=== PATIENT | male | born 1970 | race Caucasian/White ===

== ENCOUNTER 2017-01-08 20:42 | Inpatient (IN) | payer SELFPAY ==
[~2017-01-08] VITALS: Ht 172.7 cm; Wt 96.2 kg
--- NOTE | ~2017-01-08 | CATH ---
Cardiac Diagnostic + PCI Report Demographics Patient Name RADHA LAMBERT Gender Male Date of 1970 Age 46 year(s) Patient Number [id number] Date of Study 01/08/2017 Visit Number [id number] Room Number G6[address] [place] [id number] Ht 172.72 cm Wt 97.52 kg Referring Pro Damian Primary Physician Physician Performing Efstratiou Secondary Physician Physician Alonso Bar MD Diagnostic Efstratiou Assisting Physician Physician Alonso Bar MD Interventional Efstratiou Physician Photograph Developer Physician Alonso Bar MD Findings and Conclusions Diagnostic Findings and Conclusion Moderate disease in left coronary. Subtotal stenosis in mid dominant RCA with filling defect and ZOYA 1-2 flow Diagnostic Recommendations PCI to RCA Interventional Findings and Conclusion Successful KADI to mid RCA Interventional Recommendations ASA + Brilinta Procedure Description The patient was brought to the diagnostic cardiac catheterization-EP laboratory by emergency personal. Physician deemed procedure as EMERGENT. The planned puncture-incision site(s) were shaved and prepped with ChloraPrep and draped in the usual sterile manner. Conscious sedation, supplemental oxygen, and pain control medications were delivered by a registered nurse under physician guidance. Surface ECG rhythm, blood pressure measurement, and pulse oximetry were monitored throughout the procedure. Arterial access. The access site was infiltrated with lidocaine. The vessel was entered with the Seldinger technique. A sheath was advanced into the vessel and used for catheter placement. Selective left coronary angiography. A catheter was advanced into the left coronary vessel ostium under Fluoroscopic guidance. Contrast was injected by hand. Images were obtained in multiple projections. Selective right coronary angiography. A catheter was advanced into the right coronary vessel ostium under fluoroscopic guidance. Contrast was injected by hand. Images were obtained in multiple projections. Thrombectomy. A guide catheter was placed in the vessel ostium. An aspiration catheter was advanced over the wire and thrombectomy was performed. Angioplasty and Stent Placement: A guiding catheter was used to intubate the vessel. A 0.14 wire was then used to cross the lesion. A balloon catheter was placed across the lesion and inflated. The balloon catheter was then removed. A Drug Eluting Stent was placed and inflated. Post placement angiograms were performed. Arterial artery hemostasis was achieved. The patient was transferred to a regular nursing floor via cart accompanied by a nurse. The patient left the laboratory in stable condition. Diagnostic Cath Status: Emergency Interventional Cath Status: Emergency Procedure Procedure Type Diagnostic procedure:Angiography:, Coronary Angios PCI procedure:Drug Eluting Coronary Stent:, RCA, PTCA:, RCA Indications: ST changes and Chest pain. The procedure was explained in detail to the patient. Risks, complications and alternative treatments were reviewed. Written consent was obtained. Medications Reviewed with Patient prior to Procedure. Angiographic Findings Dominance: Right Cardiac Arteries and Lesion Findings LMCA: Normal (0% Stenosis). LAD: Abnormal.The 1st Diag appears abnormal. Lesion on Mid LAD: 30% stenosis . Lesion on Dist LAD: 20% stenosis . LCx: Abnormal. Lesion on Prox CX: 20% stenosis . RCA: Abnormal. Lesion on Mid RCA: 99% stenosis 24 mm length reduced to 10%. Pre procedure ZOYA II flow was noted. Post Procedure ZOYA III flow was present. The guidewire cross was successful.The lesion was diagnosed as a moderate risk lesion.Culprit lesion. Comments:Focal Defect Devices used - Whisper Wire .014 x 190. Number of passes: 1. - UnFlete.comto LP Aspiration Catheter. Number of passes: 1. - Emerge Balloon 2.5 x 15. 1 inflation(s) to a max pressure of: 14 jena. - Promus Premier 3.5 x 24 Stent. 1 inflation(s) to a max pressure of: 20 jena. - NC Emerge Balloon 4.0 x 12. 3 inflation(s) to a max pressure of: 18 jena. Coronary Tree Procedure Data Procedure Date Date: 01/08/2017Start: 09:35 PMEnd: 10:20 PM Entry Locations - Retrograde Percutaneous access was performed through the Right Radial artery (Primary location). A 6 Fr sheath was inserted. Hemostasis was successfully obtained using an R band. Closure Comments: Reji placement r-band 13 ml air. Procedure Medications Order and Administration + + + + + !Time !Medication !Dosage !Route ! + + + + + !01/08/2017 09:37 PM!Radial Nitroglycerin !200 mcg !I.A. ! + + + + + !01/08/2017 09:38 PM!Radial Heparin (ACC_3) !5000 units!I.A. ! + + + + + !01/08/2017 09:38 PM!Fentanyl !25 mcg !I.V. ! + + + + + !01/08/2017 09:39 PM!0.9% NaCl !150 ml/hr !I.V. drip ! + + + + + !01/08/2017 09:40 PM!Zofran !4 mg !I.V. ! + + + + + !01/08/2017 09:49 PM!Heparin (ACC_3) !6000 units!I.V. bolus ! + + + + + !01/08/2017 09:52 PM!Aggrastat (Tirofiban) !2500 mcg !I.C. ! + + + + + !01/08/2017 09:56 PM!0.9% NaCl !300 ml !I.V. bolus ! + + + + 01/08/2017 09:58 PM!Fentanyl !25 mcg !I.V. ! + + + + + !01/08/2017 10:08 PM!Brilinta (Ticagrelor) (ACC_20)!180 mg !P.O. ! + + + + + Devices Used - A6 Fr. BS JL 3.5 Diag. Catheterwas used for:Left coronary angiography. - A6 Fr. HS Guide Catheterwas used for:RCA Intervention. - A6 Fr. BS JR 4 Diag. Catheterwas used for:Was not used. Contrast Material - Isovue [id number] ml Fluoroscopy Time: Diagnostic: 8:42 minutes. Total: 8:42 minutes. Fluoroscopy Dose: Diagnostic: 1070 mGy. Total: 1070 mGy. Estimated Blood Loss: 50 ml. Additional [facility] PCI Information PCI Indication:Rescue PCI for STEMI (after failed full-dose lytics). Medical History Performed Procedures and Imaging Results - No [facility] stress or imaging studies were performed. Allergies - No known allergies. Risk Factors The patient risk factors include:last creatinine: 1.6 mg/dl and creatinine clearance: 79.58 ml/min. Admission Data Admission Date: 01/08/2017 Admission Time: 08:42 PM Admit Source: Transfer acute care facility Insurance Payors: Private health insurance. Clinical Evaluation Leading to Procedure Diagnosed on 01/08/2017 09:02 PM. - The patient's CAD presentation was assessed as: STEMI.The symptom onset was first noted on 01/08/2017 07:00 PM - The patient recevied thrombolytic therapy as an urgent treatment for STEMI on 01/08/2017 08:20 PM. - The patient's anginal syndrome during the past two weeks was assessed as: Class IV according to the [place] Cardiovascular Society Classification System (CCS). Snapshots Hemodynamics Condition: Rest O2 Consumption: Estimated: 243.87Heart Rate: 57 bpm Pressures (mmHg) +-----+ + !Site !Pressure ! +-----+ + !AO !112/76 (94) ! +-----+ + !AO !133/83 (106) ! +-----+ + !AO !117/74 (94) ! +-----+ + Shunts Oxygen Values O2 Consumption 243.87 Signatures dtt: Saurabh Monte dtd: 01/08/17 2135 Physician Self Edit
--- NOTE | ~2017-01-08 | HP ---
PATIENT'S NAME: PETRA GARCIA [facility] AGE: 46 Y [address] ROOM: [place] [address] LOCATION: GPCU ADMIT DATE: 01/08/2017 History & Physical DISCHARGE DATE: FAMILY PHYSICIAN: Lui Evans PA-C ATTENDING PHYSICIAN: Venancio Lobato DATE OF SERVICE: ADMISSION DIAGNOSIS: Acute myocardial infarction. HISTORY OF PRESENT ILLNESS: The patient is a 46-year-old male with previous medical history positive only for gout, but also does not see a doctor at regular intervals. He had sudden onset of substernal chest pain while working with a nilda. The patient had his drive him to the emergency room in [place] where he was diagnosed with an acute inferolateral myocardial infarction. Subsequently I was called since the patient had presented within first hour, we thrombolysed him with TNK and have him flown directly to the catheterization laboratory. REVIEW OF SYSTEMS: Negative. PAST SURGICAL HISTORY: None. OUTPATIENT MEDICATIONS: Allopurinol 100 mg takes 5 tablets a day. FAMILY HISTORY: His mother at 72 from a stroke. His father is alive at 82, in his 60s he had a quintuple bypass. The patient has one brother and three sisters and all healthy. SOCIAL HISTORY: The patient is and has 18-year-old twin daughters. He is a sahu and a rancher. Never smoked. No significant alcohol use. Denies illegal drug use. PHYSICAL EXAMINATION: GENERAL APPEARANCE: He is a middle-aged man, by the time he arrived to the catheterization laboratory, he still had 4/10 chest pain. He was alert and oriented. VITAL SIGNS: Blood pressure 170/100, heart rate is 55. HEAD: Normocephalic and atraumatic. PATIENT'S NAME: PETRA GARCIA [facility] AGE: 46 Y [address] ROOM: [place] [address] LOCATION: GPCU ADMIT DATE: 01/08/2017 History & Physical DISCHARGE DATE: FAMILY PHYSICIAN: Lui Evans PA-C ATTENDING PHYSICIAN: Venancio Lobato NECK: Supple. No jugular venous distention. No carotid bruits. HEART: Regular with a 4th heart sound. No significant murmur. LUNGS: Clear. ABDOMEN: Soft, nontender. EXTREMITIES: Lower extremities; no peripheral edema. Normal peripheral pulses. LABORATORY DATA AND IMAGING STUDIES: Electrocardiogram showed persistent ST elevations in the inferolateral leads with reciprocal changes. Laboratories drawn in [place] showed his initial troponin was less than measured scale. The CK-MB was 3.4. His creatinine was 1.58, glucose 164. ASSESSMENT AND PLAN: Acute inferolateral myocardial infarction, failed intravenous thrombolysis. The patient will have emergent coronary angiography and percutaneous intervention according to his anatomy. The risks, benefits, and alternatives have been discussed and he is willing to proceed. Thank you for allowing me to participate in the care of your patient. VENANCIO LOBATO MD PE/cristóbal /[id number] D: T: 621 HISTORY & PHYSICAL
--- NOTE | ~2017-01-08 | ECHO ---
Transthoracic Echocardiography Report (TTE) Demographics Patient Name PETRA GARCIA Date of Study 01/09/2017 Patient Number [id number] Visit Number [id number] Date of 1970 Room Number G6331 Gender Male Number Age 46 year(s) Referring Mell Gupta Molding Room Supervisor Brandy Elkins RDCS, Physician A RVT, RDMS, SKILLS AUDITOR Physician Interpreting Efstratiou Festusotis Binder Lockstitch Physician A MD Supervising Ordering Wilfredotraofelia Martinezs MD/MLP Physician A Nurse Stress Hyperbaric Tech Conclusions Summary The estimated left ventricular ejection fraction is 40-45%. There is akinesis of the basilar portion of the inferior wall. The mid, distal inferior wall and inferolateral vasquez are hypokinetic. Mild to moderately depressed systolic function. Moderate concentric left ventricular hypertrophy. Left atrial enlargement. Aneurysmal interatrial septum without obvious PFO. There is mild pulmonary hypertension. The pulmonary pressure (RVSP) is 41 mmHg. Trivial mitral, aortic and pulmonic regurgitation with mild age related valvular changes. Possible left sided pleural effusion. Procedure Type of Study TTE procedure:2D Echocardiogram, M-Mode, Doppler , Color Doppler. Procedure Date Date: 01/09/2017 Start: 08:03 AM Study Location: Inpatient Portable Technical Quality: Good visualization Indications:Acute myocardioal infarction of inferoposterior wall. Additional Indications:Post Stemi Appropriate Use Criteria: 9 Patient Status: Routine Rhythm: NSR HR: 57 bpm BP: 171/107 mmHg Allergies - No known allergies. M-Mode/2D Measurements LV Diastolic Dimension: 5.05 cm LV Systolic Dimension: 4.11 cm LV Septum Diastolic: 1.43 cm LV PW Diastolic: 1.43 cm AO Root Dimension: 3 cm Cardiac Output: 4.46 l/min AV Cusp Separation: 2.3 cm RV Diastolic Dimension: 2.76 cm LA volume: 82 ml IVC Inspiration: 1.1 cm LVOT: 2.2 cm RV Base: 3.6 cm LVOT VTI: 20.6 cm RV Mid: 3.4 cm LV Stroke volume: 78.27 ml TAPSE: 2.4 cm TDI-S': 11 cm/s Doppler Measurements AV Peak Velocity: 1.25 m/s MV Peak E-Wave: 0.66 m/s AV Peak Gradient: 6.25 mmHg MV Peak A-Wave: 0.81 m/s AV Mean Gradient: 4 mmHg MV E/A Ratio: 0.82 LVOT Peak Velocity: 0.99 m/s MV P1/2t: 100 msec TR Gradient:32.49 mmHg PV Peak Velocity: 0.96 m/s Estimated RAP:8 mmHg PV Peak Gradient: 3.66 mmHg Estimated RVSP: 40 mmHg Estimated PASP: 40.49 mmHg E' Septal Velocity: 0.06 m/s A' Septal Velocity: 0.1 m/s E' Lateral Velocity: 0.08 m/s A' Lateral Velocity: 0.08 m/s Findings Left Ventricle The left ventricle is normal in size . Moderate concentric left ventricular hypertrophy. Diastolic assessment reveals Grade I diastolic dysfunction. Mildly reduced systolic function with wall motion abnormalities. Right Ventricle Normal right ventricle structure and function. Left Atrium The left atrium is mildly dilated by LA volume index measurement. Right Atrium Normal right atrial size. IVC measures 2.3 cm with inspiratory collapse greater than 50 % Mitral Valve Mild calcification of the mitral valve. Trivial mitral regurgitation by color Doppler. Mild mitral annular calcification. Aortic Valve The aortic valve is mildly sclerotic. There is trivial aortic regurgitation by color Doppler. Tricuspid Valve Normal tricuspid valve structure and function. Trivial tricuspid regurgitation by color Doppler. There is mild pulmonary hypertension. The pulmonary pressure (RVSP) is 41 mmHg. Pulmonic Valve Trivial pulmonic valve regurgitation by color Doppler. Normal pulmonic valve structure and function. Pericardial Effusion No evidence of pericardial effusion. Miscellaneous Visualized portions of the aortic root and ascending aorta appear normal in size. Pleural Effusion Possible left sided pleural effusion. Contractility Score LV regional wall motion:(0-Non visualized 1-Normal 2-Hypokinesis 3-Akinesis 4-Dyskinesis 5-Aneurysm) Signature dtt: Saurabh Monte dtd: 01/09/17 0803 Physician Self Edit
[2017-01-08] MEDS ORDERED: ALLOPURINOL100 MG PO (22:42)
[2017-01-09 05:23] LABS: ALBUMIN 3.8 gm/dL (3.5-5.0); ANION GAP 13.9 (10.0-19.0); CALCIUM 8.1 mg/dL (8.5-10.5); CREATININE 1.2 mg/dL (0.6-1.3); POTASSIUM 3.9 mMol/L (3.7-5.1); TOTAL BILIRUBIN 1.4 mg/dL (0.0-1.5); TOTAL PROTEIN 6.9 g/dL (6.0-8.4)
[2017-01-09] MEDS ORDERED: ZYLOPRIM300 MG PO (07:41)
[2017-01-10] MEDS ORDERED: NORVASC2.5 MG PO (13:27)
[2017-01-10] MEDS ORDERED: ASPIRIN (CHILDR81 MG PO (13:32)
[2017-01-10] MEDS ORDERED: LIPITOR80 MG PO (13:33)
[2017-01-10] MEDS ORDERED: INSPRA25 MG PO (13:34)
[2017-01-10] MEDS ORDERED: COREG 3.1253.125 MG PO (13:34)
[2017-01-10] MEDS ORDERED: PRINIVIL (ZESTRI5 MG PO (13:36)
[2017-01-10] MEDS ORDERED: BRILINTA90 MG PO (13:37)
[2017-01-10] MEDS ORDERED: NITROSTAT0.4 MG SL (13:38)
== END 2017-01-10 14:50 | disposition disaster alternative care site (69) | DRG 247 ==
LOC: GPCU 20:42
PROVIDERS: ADMIT Internal Medicine Cardiovascular Disease
PROC: B216YZZ Fluoroscopy of Right and Left Heart using Other Contrast (ICD-10-PCS; principal; 2017-01-08)
PROC: 02C03ZZ Extirpation of Matter from Coronary Artery, One Artery, Percutaneous Approach (ICD-10-PCS; principal; 2017-01-08)
PROC: 027034Z Dilation of Coronary Artery, One Artery with Drug-eluting Intraluminal Device, Percutaneous Approach (ICD-10-PCS; principal; 2017-01-08)
DX: I21.19 ST elevation (STEMI) myocardial infarction involving other coronary artery of inferior wall (principal); I10 Essential (primary) hypertension; E78.5 Hyperlipidemia, unspecified; M10.9 Gout, unspecified
CPT/HCPCS: C1725; C1757; C1769; C1874; C1887; C1894; C9606; J0461; J1644; J1650; J2270; J2370; J2405; J3010; J3246; J7030

== ENCOUNTER → 2017-01-08 | Outpatient (CLI) | payer SELFPAY ==
[~2017-01-08] MED LIST: ALLOPURINOL100 MG PO; ASPIRIN (CHILDR81 MG PO; BRILINTA90 MG PO; COLCHICINE0.6 MG PO; COREG 3.1253.125 MG PO; DELTASONE20 MG PO; INSPRA25 MG PO; LIPITOR80 MG PO; NITROSTAT0.4 MG SL; NORCO 5-325 TA1 EACH PO; NORVASC2.5 MG PO; PRINIVIL (ZESTRI5 MG PO; ZYLOPRIM300 MG PO
== END | disposition disaster alternative care site (69) ==
LOC: GAMB 20:37 → GAIR 20:37
DX: I21.19 ST elevation (STEMI) myocardial infarction involving other coronary artery of inferior wall (principal); R07.9 Chest pain, unspecified; Z88.8 Allergy status to other drugs, medicaments and biological substances
CPT/HCPCS: A0422; A0431; A0436

== ENCOUNTER 2017-01-12 17:30 | Inpatient (IN) | payer SELFPAY ==
[~2017-01-12] VITALS: Ht 172.7 cm; Wt 92.9 kg
--- NOTE | ~2017-01-12 | DS ---
PATIENT'S NAME: PETRA GARCIA [facility] AGE: 46 Y [address] ROOM: [address] [place], [place] [address] LOCATION: GPCU ADMIT DATE: 01/12/2017 Discharge Summary DISCHARGE DATE: 01/14/2017 FAMILY PHYSICIAN: CURT WILKES MD ATTENDING PHYSICIAN: Adam Cordero DISCHARGE DIAGNOSES: 1. Acute gouty arthritis and cellulitis. 2. Coronary artery disease by history. PROCEDURES: Right elbow aspiration by Dr. Olmos. REASON FOR ADMISSION: Severe swelling and pain with marked disability and extremely high inflammatory indices. The patient was admitted and put on vancomycin for possible Staph or Strep arthritis. Aspiration of the joint however showed no bacteria and few white cells suggesting this was other than infectious in etiology. The patient was continued on vancomycin for over 24-hours. A 24-hour culture is negative as well supporting that nondiagnosis plan. LABORATORY DATA: Initial white count was 11.6, going to 10.9 today, hemoglobin, platelets, as well as differential has been normal, BUN, creatinine, electrolytes, kidney function all normal, potassium is down to 3.6, but it is normalized at this point, albumin was low at 3.2, subsequent to being normal when he came in, sed rate was 30, and CRP was 11.1, we do not have crystal checked back on the joint fluid. DISCHARGE INSTRUCTIONS: The patient will be discharged on meds per nursing med recon form. Diet and activity will be ad mecca. He will be limited in use of his right upper extremity until this is better. We will do high-dose steroids for a week, colchicine twice daily, and keep him on allopurinol 300 to 500 mg daily. Normally, I would not use allopurinol acutely, but he has been on it; so, I am going to leave in there and just snow that tissue with steroids for the 1st week. He will need to follow up with his primary doc Dr. Wilkes in 1 week and they can decide if he needs the prednisone extended and/or tapered at that point. He is not to work until he is able and his boss is very understanding; so, I did not write him a note nor did they request one. Note that this discharge process took less than 30 minutes. PATIENT'S NAME: PETRA GARCIA [facility] AGE: 46 Y [address] ROOM: [address] [place], [place] [address] [facility] ADMIT DATE: 01/12/2017 Discharge Summary DISCHARGE DATE: 01/14/2017 FAMILY PHYSICIAN: CURT WILKES MD ATTENDING PHYSICIAN: Adam Cordero MD JOLANTA GENTILE/modl /[id number] d: 01/15/17606 t: 01/16/17 1749, DISCHARGE SUMMARY
--- NOTE | ~2017-01-12 | HP ---
PATIENT'S NAME: PETRA GARCIA [facility] AGE: 46 Y [address] ROOM: [place] [address] LOCATION: GPCU ADMIT DATE: 01/12/2017 History & Physical DISCHARGE DATE: FAMILY PHYSICIAN: CURT BEAL MD ATTENDING PHYSICIAN: SHELLY CHONG DATE OF SERVICE: CHIEF COMPLAINT: Right upper extremity cellulitis, swelling, and pain. HISTORY OF PRESENT ILLNESS: This is a 46-year-old male with history of coronary artery disease, status post recent cardiac catheterization last week with a right upper extremity radial access, presents today with pain, erythema, and swelling of his right upper extremity with significant pain and swelling over his right wrist and elbow. The patient states that pain started 2-3 days following his heart catheterization and continued to progressively worsen leading to significant swelling and pain today. The patient was seen as a followup by Dr. Gallego, and he was noted to have signs and was subsequently admitted here for further workup. The patient also reports low-grade fevers, highest being 99.9 earlier today and also reports some subjective fevers. Otherwise, denies any chest pain, shortness of breath, dizziness, or lightheadedness. Denies any abdominal pain, nausea, vomiting, or diarrhea. Denies any dysuria, urinary urgency, or frequency. The patient has significant with any passive or active movement of right wrist or elbow joint. PAST MEDICAL HISTORY: 1. Coronary artery disease, status post cardiac catheterization last week. 2. Essential hypertension. SOCIAL HISTORY: The patient denies history of smoking, alcohol, or drug use. FAMILY HISTORY: The patient has a history of heart disease in his father. REVIEW OF SYSTEMS: All systems have been reviewed and were all negative except as described in the HPI. PHYSICAL EXAMINATION: VITAL SIGNS: Temperature 98.5, temperature max at home 99.9; other vital signs reviewed and stable. GENERAL: The patient is awake, alert, and oriented x3, in moderate distress PATIENT'S NAME: PETRA GARCIA [facility] AGE: 46 Y [address] ROOM: [place] [address] LOCATION: GPCU ADMIT DATE: 01/12/2017 History & Physical DISCHARGE DATE: FAMILY PHYSICIAN: CURT BEAL MD ATTENDING PHYSICIAN: SHELLY CHONG from pain in the arm, elbow, and wrist. HEENT: No scleral icterus or conjunctival pallor noted. Moist mucous membranes. CHEST: Clear to auscultation bilaterally. HEART: S1 and S2. Regular rate and rhythm. ABDOMEN: Soft, nontender, nondistended with positive bowel sounds. NEUROLOGIC: Grossly nonfocal. MUSCULOSKELETAL: Right upper extremity elbow swollen, hot to tough. There is erythema overlying the elbow. Also has significant tenderness with both passive and active range of motion of his right wrist as well and this is also warm to touch. SKIN: Erythema overlying the elbow noted. ASSESSMENT AND PLAN: 1. Right upper extremity elbow and wrist cellulitis with significant swelling concerning for septic joint. Infection might be related to his recent cardiac catheterization that he had done last week and that was . We will get blood culture and consult Orthopedics for possible aspiration of either one of the joints, preferably elbow joint as this is concerning for a septic arthritis. We will treat with IV vancomycin empirically. 2. Coronary artery disease, status post stenting. We will continue his cardiac medications. The patient denies chest symptoms. 3. Essential hypertension. We will continue the patient's home medications. 4. Intractable pain. IV morphine for breakthrough pain and p.o. Waldron as well, as needed. MD GLORIA PROCTOR/cristóbal /[id number] D: [id number] T: [id number] HISTORY & PHYSICAL
--- NOTE | ~2017-01-12 | CON ---
PATIENT'S NAME: PETRA VILLANUEVA [facility] AGE: 46 Y [address] ROOM: [place] [address] LOCATION: GPCU ADMIT DATE: 01/12/2017 Consultation DISCHARGE DATE: FAMILY PHYSICIAN: CURT BEAL MD ATTENDING PHYSICIAN: SHELLY CHONG DATE OF CONSULTATION: 01/12/2017 REFERRING PHYSICIAN: BREANA SOUZA MD TIME: 8:30 p.m. CHIEF COMPLAINT: Right elbow and wrist pain. HISTORY OF PRESENT ILLNESS: Mr. Villanueva is a pleasant 46-year-old right-hand dominant gentleman, with a history positive only for gout, who was admitted to the hospital for an acute myocardial infarction. He was treated for this. Over the last three days, he has reported that he has had persistent and increasing right elbow and wrist pain. He reports having fractured his right elbow and wrist in the past. He denies any recent fall or trauma. Aggravating factors include manipulation of the limb, moving the limb, or touching of the elbow or wrist. Alleviating factors include rest, ice, and elevation. The patient denies any constitutional symptoms such as fever, chills, or night sweats. He also denies any dizziness, chest pain, shortness of breath, blurred vision, nausea, vomiting, or diarrhea at this moment. He reports that he had a "fever" of 99 degrees Fahrenheit last night. REVIEW OF SYSTEMS: A ten-point review of systems was otherwise as noted above in the HPI. The rest is negative. PAST MEDICAL HISTORY: Included myocardial infarction. PAST SURGICAL HISTORY: Includes cardiac catheterization. MEDICATIONS: Include allopurinol. FAMILY HISTORY: His mother at 72 from a stroke. His father is alive at 82, and in his 60s, his father had a quadruple bypass. The patient has one brother and three PATIENT'S NAME: PETRA VILLANUEVA [facility] AGE: 46 Y [address] ROOM: [place] [address] LOCATION: GPCU ADMIT DATE: 01/12/2017 Consultation DISCHARGE DATE: FAMILY PHYSICIAN: CURT BEAL MD ATTENDING PHYSICIAN: SHELLY CHONG sisters, who are all healthy. SOCIAL HISTORY: The patient is and has 18-year-old twin daughters. He is a sahu and a rancher. He denies smoking. He consumes alcohol socially. He denies any illicit drug use. PHYSICAL EXAMINATION: VITAL SIGNS: Included temperature of 98.6, respirations of 18, heart rate of 65, and blood pressure of 116/66. HEENT: Normocephalic and atraumatic. Extraocular movements are intact. PERRLA. Moist mucous membranes. The oropharyngeal airway is clear. The auditory canals are clear. NECK: Supple. Trachea is in the midline. CARDIOVASCULAR: Regular rate and rhythm. CHEST: Normal symmetric respirations were observed bilaterally. ABDOMEN: Soft, nontender, and nondistended. SKIN: Dry. MUSCULOSKELETAL: Right upper extremity: Focused examination of the patient's right upper extremity reveals it is grossly neurologically intact distally. Compartments of the arm, forearm, and hand are soft. There is a palpable radial pulse. Sensation is intact to light touch through AIN/PIN/median/radial/ulnar nerve distributions. The patient has pain with active and attempted passive range of motion of the elbow and wrist. There is swelling at the elbow and wrist. There is some erythema and warmth noted along with the swelling at the elbow and wrist. IMAGING: No plain imaging exists of the wrist or elbow. LABORATORY VALUES: Include a CBC of hemoglobin of 15.3, hematocrit of 44.4, white blood cell count of 11.6, and platelet count of 199. Chem-7: Sodium was 138, potassium was 4.0, chloride was 104, CO2 was 28, BUN was 14, creatinine was 1.3, and glucose was 101. No CRP or ESR is noted. PROCEDURE: Informed consent was obtained. Under sterile preparation, the right wrist and elbow were both aspirated using an 18-gauge needle and a 10-mL syringe. The aspirate of the right wrist was dry. The aspirate of the right elbow yielded approximately 3 mL of blood-tinged fluid. No gross purulence was noted. IMPRESSION: 1. Right wrist and elbow septic arthritis versus acute gouty arthritis attack. PATIENT'S NAME: PETRA VILLANUEVA [facility] AGE: 46 Y [address] ROOM: [place] [address] LOCATION: GPCU ADMIT DATE: 01/12/2017 Consultation DISCHARGE DATE: FAMILY PHYSICIAN: CURT BEAL MD ATTENDING PHYSICIAN: SHELLY CHONG 2. Recent myocardial infarction with intervention. 3. History of right wrist and elbow fractures managed nonoperatively. PLAN: I had a long discussion with the patient today regarding the wrist and elbow. They are both swollen. There is warmth and erythema present. I discussed the risks, benefits, and alternatives of pursuing a right wrist and elbow aspiration. I discussed the risks of new infection, bleeding, and/or injury to neurovascular structures. Under the current circumstances, I was consulted to rule out septic arthritis of these joints. I believe that despite the fact that there is no imaging available, I would not want to delay the diagnosis by not aspirating it. The patient was agreeable to proceeding with the aspiration. Informed consent was obtained, and the patient tolerated the aspiration well. The aspiration of the wrist was dry, it was a dry tap. The aspiration of the elbow revealed approximately 3 mL of blood-tinged fluid. There was no purulence noted. In light of the fact that the patient has a history of gout and is currently being treated for it, and then had a recent exacerbation in his health, it is distinctly possible that the wrist and elbow have sustained a gout flare. I recommend continuing the gout medication. I am going to recommend plain films of the elbow and wrist be obtained this evening. In the event that the wrist and elbow x-rays are within normal limits, it may be reasonable to obtain MRIs. At this time, I believe that it is important to provide the patient with pain medicine to help him with the wrist and elbow. I would even encourage that Physical Therapy and Occupational Therapy be consulted for early ambulation and early motion of the joints in the right upper extremity. At this time, I will await the results of the right elbow aspirate that were sent for Gram stain, cultures, and cell count. I have also requested an ESR and a CRP be ordered. I will follow the patient closely in this. MD WANDA RODRIGUEZ/cristóbal /[id number] d: 01/13/17 0508 t: 01/13/17 0800, CONSULTATION REPORT
--- NOTE | ~2017-01-12 | CON ---
PATIENT'S NAME: PETRA GARCIA [facility] AGE: 46 Y [address] ROOM: [place] [address] [facility] ADMIT DATE: 01/12/2017 Consultation DISCHARGE DATE: FAMILY PHYSICIAN: CURT BEAL MD ATTENDING PHYSICIAN: SHELLY CHONG DATE OF CONSULTATION: 01/13/2017 REFERRING PHYSICIAN: BREANA SOUZA MD REASON FOR CONSULT: Right arm swelling and pain. HISTORY OF PRESENTING ILLNESS: This is a 46-year-old male who recently underwent heart catheterization performed through his right wrist. He presented to [facility] on January 12 with complaints of pain and swelling in his right arm. He was discharged to home on Thursday. Due to worsening symptoms, he went to a local hospital in [place] and was prescribed antibiotics. The patient reports that he has not started taking these antibiotics yet. The patient does have a history positive for gout. Also, with a history of a fractured right elbow and wrist in the past. He denies any recent trauma to his right upper extremity. The patient does have pain with movement or pressure of the elbow or the wrist. Dr. Escamilla did quickly look at the patient while he was in the office seeing Julián and an arterial and venous duplex was ordered. Those exams have been completed without any abnormal findings. The patient denies any chest pain, shortness of breath, dizziness, or palpitations. He reports that he had a fever high of 99 at home. He denies any chills. He does have pain and discomfort to the right arm. Denies any nausea, vomiting, diarrhea, constipation, or abdominal pain. The patient denies any history of DVT. Denies any history of TIA or stroke. Denies any claudication. Denies any chronic swelling of any other extremities. PAST MEDICAL HISTORY: Includes: 1. Gout. 2. Coronary artery disease, status post percutaneous transluminal balloon angioplasty with insertion of stent into coronary artery. PAST SURGICAL HISTORY: Cardiac heart catheterization. FAMILY HISTORY: Father with coronary artery disease and myocardial infarction. Mother with stroke and diabetes mellitus. Uncle with myocardial infarction and stroke. PATIENT'S NAME: PETRA GARCIA [facility] AGE: 46 Y [address] ROOM: [place] [address] LOCATION: GPCU ADMIT DATE: 01/12/2017 Consultation DISCHARGE DATE: FAMILY PHYSICIAN: CURT BEAL MD ATTENDING PHYSICIAN: SHELLY CHONG SOCIAL HISTORY: The patient denies any smoking and consumes alcohol socially. He denies any illicit drug use. 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 CURRENT MEDICATIONS: See medication reconciliation. ALLERGIES: NO KNOWN DRUG ALLERGIES. REVIEW OF SYSTEMS: A 10-point review of systems has been completed and negative aside from pertinent positives addressed in history of presenting illness. PHYSICAL EXAMINATION: VITAL SIGNS: Temperature 99.7, heart rate 83, respirations 16, blood pressure 134/75, and oxygen saturations 92%. GENERAL: The patient is alert and oriented x3. He is in no acute distress. SKIN: Warm, pink, and dry. HEENT: Head: Normocephalic and atraumatic. Ears without drainage. Eyes: Sclerae white. Conjunctivae pink. Nose: Without drainage. Throat: Oral mucosa pink and moist. No exudate or erythema. NECK: Without adenopathy. No evidence of JVD. Trachea midline. No carotid bruit. RESPIRATORY: Lungs are clear to auscultation bilaterally, even and unlabored. CARDIOVASCULAR: Regular rate and rhythm. No murmur or extra sounds. GASTROINTESTINAL: Bowel sounds active x4. Soft and nontender. No organomegaly. EXTREMITIES: The patient with bilateral radial pulse 2+. There is no bruit or thrill in right arm. The patient has moderate generalized edema to right arm. No cyanosis. Cap refill less than 3 seconds. No evidence of hematoma. Femoral pulses 2+. No numbness or tingling. Sensation is intact. Pain with motion of the elbow and wrist. Mild erythema along the elbow and wrist. DIAGNOSTICS/LABORATORY DATA: Hematology: White blood cell count 10.9, hemoglobin 13.5, hematocrit 39.7, and platelets 194. ESR 30, CRP 11.1. ASSESSMENT AND PLAN: Right arm edema post heart catheterization. According to ultrasound of venous and arterial system, there is no evidence of fistula as well as no bruit or thrill. The patient has been seen by the Orthopedic Surgeon and is being evaluated for right wrist and elbow septic arthritis PATIENT'S NAME: PETRA GARCIA [facility] AGE: 46 Y [address] ROOM: [id number] [place], [place] [id number] [facility] ADMIT DATE: 01/12/2017 Consultation DISCHARGE DATE: FAMILY PHYSICIAN: CURT BEAL MD ATTENDING PHYSICIAN: SHELLY CHONG versus acute gouty arthritis attack. If swelling and pain persists, the patient would potentially require a formal angiogram to rule out fistula. Follow up with Vascular Surgery if the patient continues to have problems with swelling and pain. Thank you for your consultation for allowing us to participate in the care of this patient. LENNY KEATING APRN FOR MABLE ESCAMILLA MD TO/cristóbal /[id number] d: 01/14/17 0147 t: 01/22/17 1720, CONSULTATION REPORT
[~2017-01-12 17:30] MED LIST changes: -COLCHICINE0.6 MG PO; -DELTASONE20 MG PO; -NORCO 5-325 TA1 EACH PO
[2017-01-12 20:47] LABS: BASOPHIL % 0.3 %; EOSINOPHIL # 0.1 K/uL (0.0-0.5); HEMOGLOBIN 14.8 g/dL (12.0-17.0); IMMATURE GRANULOCYTE # 0.1 K/uL (0.0-0.3); IMMATURE GRANULOCYTE % 0.7 %; LYMPHOCYTE # 1.1 K/uL (0.8-4.0); LYMPHOCYTE % 10.1 %; MCH 31.8 pg (27.0-34.0); MCHC 34.4 gm/dL (32.0-36.5); MCV 92.5 fl (83.0-98.0); MONOCYTE # 0.8 K/uL (0.0-1.0); MONOCYTE % 7.6 %; NEUTROPHIL # (ANC) 8.8 K/uL (1.4-9.0); NEUTROPHIL % 80.3 %; NRBC % 0 /100WBC (0-0.00); PLATELET COUNT 183 K/uL (150-450); RBC 4.65 M/uL (4.00-6.00)
[2017-01-12 21:36] LABS: ALBUMIN 3.8 gm/dL (3.5-5.0); ANION GAP 10.6 (10.0-19.0); CALCIUM 8.9 mg/dL (8.5-10.5); CREATININE 1.3 mg/dL (0.6-1.3); MAGNESIUM 2.1 mg/dL (1.8-2.6); PHOSPHORUS 2.4 mg/dL (2.5-4.9); POTASSIUM 3.6 mMol/L (3.7-5.1)
[2017-01-13 05:01] LABS: BASOPHIL % 0.3 %; EOSINOPHIL # 0.1 K/uL (0.0-0.5); EOSINOPHIL % 1.1 %; HEMATOCRIT 39.7 % (37.0-53.0); HEMOGLOBIN 13.9 g/dL (12.0-17.0); IMMATURE GRANULOCYTE # 0.1 K/uL (0.0-0.3); IMMATURE GRANULOCYTE % 0.6 %; LYMPHOCYTE # 1.4 K/uL (0.8-4.0); LYMPHOCYTE % 12.5 %; MCH 32.3 pg (27.0-34.0); MCV 92.1 fl (83.0-98.0); MONOCYTE # 1.2 K/uL (0.0-1.0); MONOCYTE % 10.6 %; MPV 10.7 fl (9.4-12.4); NEUTROPHIL # (ANC) 8.2 K/uL (1.4-9.0); NEUTROPHIL % 74.9 %; NRBC % 0 /100WBC (0-0.00); PLATELET COUNT 194 K/uL (150-450); RBC 4.31 M/uL (4.00-6.00); RDW-CV 12.9 % (11.9-14.6); WBC 10.9 K/uL (4.0-11.0)
[2017-01-13 05:15] LABS: ALBUMIN 3.2 gm/dL (3.5-5.0); ANION GAP 9.6 (10.0-19.0); CALCIUM 8.6 mg/dL (8.5-10.5); CREATININE 1.3 mg/dL (0.6-1.3); MAGNESIUM 2.2 mg/dL (1.8-2.6); PHOSPHORUS 2.8 mg/dL (2.5-4.9); POTASSIUM 3.6 mMol/L (3.7-5.1)
[2017-01-14 04:18] LABS: ANION GAP 10.8 (10.0-19.0); CALCIUM 8.6 mg/dL (8.5-10.5); CREATININE 1.2 mg/dL (0.6-1.3); POTASSIUM 3.8 mMol/L (3.7-5.1)
[2017-01-14] MEDS ORDERED: COLCHICINE0.6 MG PO (13:59)
[2017-01-14] MEDS ORDERED: DELTASONE20 MG PO (14:01)
[2017-01-14] MEDS ORDERED: NORCO 5-325 TA1 EACH PO (14:03)
== END 2017-01-14 15:05 | disposition disaster alternative care site (69) | DRG 603 ==
LOC: GPCU 17:49
PROVIDERS: Internal Medicine Cardiovascular Disease; ADMIT Internal Medicine
PROC: 0R9L3ZZ Drainage of Right Elbow Joint, Percutaneous Approach (ICD-10-PCS; principal; 2017-01-12)
PROC: 0R9N3ZZ Drainage of Right Wrist Joint, Percutaneous Approach (ICD-10-PCS; principal; 2017-01-12)
DX: L03.113 Cellulitis of right upper limb (principal); I10 Essential (primary) hypertension; M10.9 Gout, unspecified; I25.10 Atherosclerotic heart disease of native coronary artery without angina pectoris; E78.5 Hyperlipidemia, unspecified; I25.2 Old myocardial infarction; Z87.81 Personal history of (healed) traumatic fracture; Z95.5 Presence of coronary angioplasty implant and graft; Z82.49 Family history of ischemic heart disease and other diseases of the circulatory system; Z79.82 Long term (current) use of aspirin
CPT/HCPCS: J2270; J3370; J7040; J7050

== ENCOUNTER → 2017-01-12 | Outpatient (CLI) | payer SELFPAY ==
[2017-01-12 14:33] LABS: BASOPHIL % 0.2 %; EOSINOPHIL # 0.2 K/uL (0.0-0.5); EOSINOPHIL % 1.8 %; HEMATOCRIT 44.4 % (37.0-53.0); HEMOGLOBIN 15.3 g/dL (12.0-17.0); IMMATURE GRANULOCYTE # 0.1 K/uL (0.0-0.3); IMMATURE GRANULOCYTE % 0.7 %; LYMPHOCYTE # 1.5 K/uL (0.8-4.0); LYMPHOCYTE % 12.8 %; MCH 32.3 pg (27.0-34.0); MCHC 34.5 gm/dL (32.0-36.5); MCV 93.7 fl (83.0-98.0); MONOCYTE # 0.9 K/uL (0.0-1.0); MONOCYTE % 7.7 %; NEUTROPHIL # (ANC) 8.9 K/uL (1.4-9.0); NEUTROPHIL % 76.8 %; NRBC % 0 /100WBC (0-0.00); PLATELET COUNT 199 K/uL (150-450); RBC 4.74 M/uL (4.00-6.00); RDW-CV 12.9 % (11.9-14.6); WBC 11.6 K/uL (4.0-11.0)
[2017-01-12 14:42] LABS: CALCIUM 9.2 mg/dL (8.5-10.5); CREATININE 1.3 mg/dL (0.6-1.3)
== END ==
LOC: LNHI 14:28
PROVIDERS: Internal Medicine Interventional Cardiology
DX: M79.601 Pain in right arm (principal)

== ENCOUNTER → 2017-01-12 | Outpatient (CLI) | payer SELFPAY ==
--- NOTE | ~2017-01-12 | ENPV ---
Vascular Upper Extremities Veins Procedure Demographics Patient Name PETRA GARCIA Date of Study 01/12/2017 Patient Number [id number] Gender Male Date of 1970 Age 46 Visit Number [id number] Height Accession Number [id number] Weight Room Number BSA BMI Referring Julián Kurt Aguilera MD Physician [place] Physician Physician Ordering Janifrahjacky Mig Tig Welder Physician [place] Steel Analyst Chun Edmonds BS, RT Homa Fisher RVT, RDCS Conclusions Summary The internal jugular, subclavian, axillary, brachial, radial and ulnar veins as well as the basilic and cephalic veins have been examined. Normal left upper extremity venous duplex. Procedure Type of Study: Veins:Upper Extremities Veins, Upper Extremity Right. Indications for Study:Swelling. Allergies - No known allergies. Patient Status:Routine. Study Location:Vascular Lab. Technical Quality:Adequate visualization. Velocities are measured in cm/s ; Diameters are measured in cm Right UE Vein Measurements 2D and Doppler Measurements + + + + +--------+--------+ !Location !Visualized !Compressibility !Thrombosis !Signal !Reflux ! + + + + +--------+--------+ !IJV !Yes !Yes !None !Phasic !No ! + + + + +--------+--------+ !SCV !Yes !Yes !None !Phasic !No ! + + + + +--------+--------+ !Innominate !Yes !Yes !None !Phasic !No ! + + + + +--------+--------+ !Axillary !Yes !Yes !None !Phasic !No ! + + + + +--------+--------+ !Brachial !Yes !Yes !None !Phasic !No ! + + + + +--------+--------+ !Radial !Yes !Yes !None !Phasic !No ! + + + + +--------+--------+ !Ulnar !Yes !Yes !None !Phasic !No ! + + + + +--------+--------+ !Basilic !Yes !Yes !None !Phasic !No ! + + + + +--------+--------+ !Cephalic !Yes !Yes !None !Phasic !No ! + + + + +--------+--------+ Left UE Vein Measurements 2D and Doppler Measurements + + + + +--------+ + !Location !Visualized !Compressibility !Thrombosis !Signal !Reflux ! + + + + +--------+ + !IJV !Yes !Yes !None !Phasic ! ! + + + + +--------+ + Signature dtt: MABLE STATON dtd: 01/12/17 1447 Physician Self Edit
--- NOTE | ~2017-01-12 | ENPV ---
Vascular Upper Extremities Arterial Duplex Procedure Demographics Patient Name PETRA GARCIA Date of Study 01/12/2017 Patient Number [id number] Gender Male Date of 1970 Age 46 Visit Number [id number] Height Weight Number Room Number BSA BMI Referring Julián Kurt Aguilera MD Physician [place] Physician Physician Ordering Janifrahjacky Yates Metal Fabricator Physician Sail Repairer Chun Edmonds BS, RT Conclusions Summary Antegrade arterial flow throughout right upper extremity. Normal waveforms throughout. Normal velocities. Procedure Type of Study: Extremities Arteries:Upper Extremities Arterial Duplex, Upper Extremity Right. Indications for Study:Swelling of Limb. Additional Indications:Post Radial Cath Allergies - No known allergies. Patient Status:Routine. Study Location:Vascular Lab. Technical Quality:Adequate visualization. Velocities are measured in cm/s ; Diameters are measured in cm Right Upper Extremities Duplex Measurements + +---+-----+ +---------+ !Location !PSV!Ratio!Wave Description !Diameter ! + +---+-----+ +---------+ !Prox Subclavian !97 ! ! ! ! + +---+-----+ +---------+ !Axillary !110! ! ! ! + +---+-----+ +---------+ !Prox Brachial !87 !0.89 ! ! ! + +---+-----+ +---------+ !Dist Brachial !76 !0.87 ! ! ! + +---+-----+ +---------+ !Prox Radial !70 !0.92 ! ! ! + +---+-----+ +---------+ !Mid Radial !60 !0.87 ! ! ! + +---+-----+ +---------+ !Dist Radial !72 !1.19 ! ! ! + +---+-----+ +---------+ !Prox Ulnar !18 !0.24 ! ! ! + +---+-----+ +---------+ !Mid Ulnar !31 !1.7 ! ! ! + +---+-----+ +---------+ !Dist Ulnar !20 !0.64 ! ! ! + +---+-----+ +---------+ Signature dtt: MABLE STATON dtgenesis: 01/12/17 1512 Physician Self Ednoris
== END | disposition disaster alternative care site (69) ==
LOC: GCAR 14:30
DX: M79.601 Pain in right arm (principal)